=== PATIENT | female | born 1955 | race Caucasian/White ===

== ENCOUNTER → 2017-01-22 | Outpatient (CLI) | payer BC ==
[~2017-01-22] MED LIST: ASP81TEC PO; GLUCOSAMINE; HYDR-3583 PO; IBP600T1 PO; NIACIN
--- NOTE | 2017-01-26 13:58 | Diagnostic Imaging Report ---
EXAMINATION: Bilateral screening mammogram 2D views with tomosynthesis. The current study was also evaluated with a Computer Aided Detection (CAD) system. INDICATION: Screening. PERSONAL HISTORY: No current complaints stated on the questionnaire. COMPARISON: 09/23/2015. FINDINGS: The breasts are composed of heterogeneously dense parenchyma which may decrease mammographic sensitivity. No mass, architectural distortion, or suspicious cluster of calcifications is seen. Allowing for technique and positional differences, no suspicious change is seen. IMPRESSION: Dense breasts with no definite change. ACR BI-RADS Category 2: Benign findings. Result letter will be mailed to the patient. Note: At least 10% of breast cancer is not imaged by mammography. Dictated by: Dictated on workstation # [id number]
== END ==
LOC: RAD 12:58
PROVIDERS: ATTEND Family Medicine
DX: Z12.31 Encounter for screening mammogram for malignant neoplasm of breast (principal)
CPT/HCPCS: 77067

== ENCOUNTER → 2018-05-09 | Outpatient (CLI) | payer MEDICARE | LOC: RAD 15:09 | PROVIDERS: ATTEND Family Medicine | DX: Z12.31 Encounter for screening mammogram for malignant neoplasm of breast (principal) | CPT/HCPCS: 77067 ==

== ENCOUNTER 2018-05-23 15:35 | Outpatient (CLI) | payer MEDICARE ==
[~2018-05-23] VITALS: Ht 167.6 cm; Wt 61.7 kg
[~2018-05-23 15:35] MED LIST changes: +PANT40TA3 PO
== END 2018-05-23 15:43 ==
LOC: PREOP 15:35
PROVIDERS: ATTEND Internal Medicine
DX: Z01.818 Encounter for other preprocedural examination (principal)

== ENCOUNTER 2018-05-27 07:26 | Day surgery (SDC) | payer MEDICARE ==
--- NOTE | 2018-05-18 18:23 | HISTORY AND PHYSICAL ---
DATE OF SERVICE: COLONOSCOPY HISTORY AND PHYSICAL HISTORY OF PRESENT ILLNESS: The patient is a 63-year-old white female referred by Dr. Carley Vazquez for surveillance colonoscopy. She last underwent a colonoscopy six years ago at which time, one tubular adenoma was removed from the mid sigmoid colon. There was positive family history for colon cancer in her mother diagnosed in her 70s. She also had an uncle diagnosed in his 80s. She reports that she has been feeling well and reports no change in her health history compared to six years ago. She denies bowel habit change, abdominal pain, bright red blood per rectum, no melena and since being placed on proton pump inhibitor therapy, she has had no reflux symptoms or dysphagia. PAST MEDICAL HISTORY: Significant for mild hyperlipidemia and arthritis. She has no known history of cardiovascular or pulmonary disease. SOCIAL HISTORY: She is a retired teacher, 1 to 2 glasses of wine per night alcohol consumption and quit smoking over 20 years ago with previous 10 to 15 pack-year history. PAST SURGICAL HISTORY: She reports no past surgeries. FAMILY HISTORY: Mother was diagnosed with colon cancer in her 70s and an uncle in his 80s. She is not aware of any other significant family history for illness. PHYSICAL EXAMINATION: GENERAL: Reveals normal weight fit appearing white female, appears to be in no acute distress. VITAL SIGNS: Blood pressure 114/84, heart rate 66 and regular. HEENT: Unremarkable. Sclerae nonicteric. Oral cavity reveals a Mallampati class 2 pharyngeal configuration with no evidence for erythema or exudate. CHEST: Clear to auscultation. CARDIOVASCULAR: Reveals a regular rate and rhythm without murmur, S3 or S4. ABDOMEN: Soft, supple without mass, organomegaly or tenderness. EXTREMITIES: Reveal no cyanosis, clubbing or edema. ASSESSMENT AND PLAN: The patient is set up for surveillance colonoscopy due to past history of colon polyps as well as a family history for colon cancer as noted in the HPI. Prep instructions with the Suprep kit were given and questions were answered. I thank you for the referral of this pleasant lady. Job ID: [id number] DocumentID: [id number] Dictated Date: 05/12/2018 16:05:50 [employer] Operator Date: 05/12/2018 16:32:55 Dictated By: TERELL PURCELL MD
[~2018-05-27] VITALS: Ht 167.6 cm; Wt 61.7 kg
[2018-05-27] MEDS ORDERED: D5 LR IV SOLUTION 1,000 ML IV STA (07:39)
[2018-05-27] MEDS ORDERED: LIDOCAINE JELLY 2% 6 ML SYRINGE MM PRN (07:45)
[2018-05-27] MEDS ORDERED: D5 LR IV SOLUTION 1,000 ML IV ONE (07:45)
[2018-05-27] MEDS ORDERED: fentaNYL INJECTION 100 MCG/2 ML AMP IVP ONE (07:45)
[2018-05-27] MEDS ORDERED: MIDAZOLAM 2 MG/2 ML (VERSED) VIAL IVP ONE (07:45)
[2018-05-27 07:53] VITALS: BP 138/118
[2018-05-27] MEDS ORDERED: MIDAZOLAM 2 MG/2 ML (VERSED) VIAL ONE ×2 (08:03)
[2018-05-27] MEDS ORDERED: LIDOCAINE JELLY 2% 6 ML SYRINGE ONE (08:03)
[2018-05-27] MEDS ORDERED: fentaNYL INJECTION 100 MCG/2 ML AMP ONE ×2 (08:03)
[2018-05-27 09:15] VITALS: BP 149/83
--- NOTE | 2018-05-27 09:17 | Pre-Op Note & Conscious Sedat ---
Pre-Operative Progress Note H&P Reviewed The H&P was reviewed, patient examined and no changes noted. Date H&P Reviewed: May 27, 2018 Time H&P Reviewed: 07:45 Conscious Sedation Pre-Proced ASA Score 2 For ASA 3 and 4: Consider anesthesia and medical clearance. Also, for patients with a history of failed moderate sedation consider anesthesia. Airway Lungs Heart ASA score ASA 1: a normal healthy patient ASA 2: a patient with a mild systemic disease (mid diabetes, controlled hypertension, obesity ASA 3: a patient with a severe systemic disease that limits activity (angina , COPD, prior Myocardial infarction) ASA 4: a patient with an incapacitating disease that is a constant threat to life (CHF, renal failure) ASA 5: a moribund patient not expected to survive 24 hrs. (ruptured aneurysm) ASA 6: a declared brain- patient whose organs are being harvested. For emergent operations, add the letter E after the classification Mallampati Classification Grade 2 Sedation Plan Analgesia, Amnesia, Plan communicated to team members, Discussed options with patient/fam, Discussed risks with patient/fam The patient is an appropriate candidate to undergo the planned procedure, sedation, and anesthesia. The patient immediately re-assessed prior to indication. TERELL PURCELL MD May 27, 2018 09:17
[2018-05-27 09:45] VITALS: BP 158/86
[2018-05-27 10:05] VITALS: BP 158/86
--- NOTE | 2018-05-28 04:33 | OPERATIVE REPORT ---
DATE OF SERVICE: COLONOSCOPY SUMMARY INDICATION FOR THE PROCEDURE: Surveillance colonoscopy due to past history of colon polyps and a family history for colon cancer, index case being her mother in her 80s. The patient was placed in the left lateral decubitus position. Prior to undergoing colonoscopy, digital rectal evaluation was performed. Anal sphincter tone was normal and perianal reflexes intact. The anal canal is unremarkable. Digital evaluation was compatible with a small anterior rectocele. No other abnormalities to visual inspection of anal canal or distal rectal vault. The colonoscope was then inserted into the rectum and under direct visualization advanced to the cecum. The cecum was identified by identification of the ileocecal valve and cecal strap. Photographic documentation was obtained. A careful inspection was made as the colonoscope was withdrawn. The colonic prep was good. FINDINGS: There is no evidence for internal or external hemorrhoids. The rectum, sigmoid colon, descending colon, splenic flexure, and transverse colon were unremarkable. Several small to medium size ascending colonic diverticulum were noted without evidence for diverticulitis. No other ascending colonic abnormalities were appreciated. The cecum was unremarkable. ASSESSMENT: Several moderate size ascending colonic diverticulum were noted without evidence for diverticulitis. No left sided diverticulum were noted. No evidence for neoplasia was noted and no other abnormalities were appreciated. We would advocate consideration for repeat screening colonoscopy in 5 years considering family history. I thank you for the referral of this pleasant lady. Job ID: [id number] DocumentID: [id number] Dictated Date: 05/27/2018 17:08:31 Youth Probation Officer Date: 05/28/2018 04:32:03 Dictated By: TERELL PURCELL MD MTDD
== END 2018-05-27 10:05 | disposition home or self-care (01) ==
LOC: ENDO 07:26
PROVIDERS: ATTEND Internal Medicine
DX: Z12.11 Encounter for screening for malignant neoplasm of colon (principal); K57.30 Diverticulosis of large intestine without perforation or abscess without bleeding; Z86.010 Personal history of colon polyps; Z80.0 Family history of malignant neoplasm of digestive organs; E78.5 Hyperlipidemia, unspecified; Z87.891 Personal history of nicotine dependence

== ENCOUNTER → 2019-05-29 | Outpatient (CLI) | payer MEDICARE ==
--- NOTE | 2019-05-29 17:56 | Diagnostic Imaging Report ---
EXAMINATION: Digital mammogram bilateral screening. The current study was also evaluated with a Computer Aided Detection (CAD) system. 3-D tomosynthesis was also performed and reviewed. INDICATION: Screening. This study was compared to the prior exams of 05/09/2018, 01/22/2017, and 09/23/2015. At this time, there are no current complaints. FINDINGS: The fibroglandular tissue in both breasts is heterogeneously dense. This does limit the sensitivity of this exam. Overall, there does not appear to have been any significant change when compared to the prior study. No primary or secondary sign of malignancy is noted. 3D tomographic images fail to show any sign of malignancy. IMPRESSION: There is no radiographic evidence for malignancy. ACR BI-RADS Category 1: Negative. Result letter will be mailed to the patient. Note: At least 10% of breast cancer is not imaged by mammography. Dictated by: Dictated on workstation # [id number]
== END ==
LOC: RAD 14:32
PROVIDERS: ATTEND Family Medicine
DX: Z12.31 Encounter for screening mammogram for malignant neoplasm of breast (principal)
CPT/HCPCS: 77067

== ENCOUNTER → 2020-08-06 | Outpatient (CLI) | payer MEDICARE ==
[~2020-08-06] MED LIST changes: -PANT40TA3 PO; +PANT40TA52 PO
--- NOTE | 2020-08-06 16:13 | Diagnostic Imaging Report ---
INDICATION: Routine screening. COMPARISON: 05/29/2019 and 05/09/2018. TECHNIQUE: 2D and 3D bilateral screening mammography was performed with CAD. FINDINGS: Both breasts are heterogeneously dense, limiting the sensitivity of mammography. The parenchymal pattern is stable. No mass or malignant appearing microcalcifications are seen. The axillae are unremarkable. IMPRESSION: No mammographic features suspicious for malignancy are identified. ACR BI-RADS Category 1: Negative. Result letter will be mailed to the patient. Note: At least 10% of breast cancer is not imaged by mammography. Dictated by: Dictated on workstation # [id number]
--- NOTE | 2020-08-06 16:24 | Diagnostic Imaging Report ---
INDICATION: Postmenopausal screening COMPARISON: Baseline FINDINGS: AP Spine L1-L4: [BMD (g/cm2): 1.282] [T-Score: 0.7] [Z-Score: 2.5] [BMD Previous: na] [BMD % Change: na] LT Hip Neck: [BMD (g/cm2): 0.891] [T-Score: -1.1] [Z-Score: 0.6] LT Hip Total: [BMD (g/cm2):0.788] [T-Score:-1.7] [Z-Score: -0.3] [BMD Previous: na] [BMD % Change: na] RT Hip Neck: [BMD (g/cm2):0.924] [T-Score:-0.8] [Z-Score:0.9] RT Hip Total: [BMD (g/cm2):0.764] [T-score:-1.9] [Z-Score:-0.5] [BMD Previous:na] [BMD % Change:na] *Indicates significant change from prior examination based on 95% confidence level. World Health Organization criteria for BMD interpretation classify patients as Normal (T-score at or above -1.0), Osteopenic (T-score between -1.0 and -2.5) or Osteoporotic (T-score at or below -2.5). LIMITATIONS AND MODIFICATION: None. FRACTURE RISK (FRAX SCORE): The ten year probability of (%): Major Osteoporotic Fracture: [7.7] Hip Fracture: [0.7] IMPRESSION: 1. Osteopenia (Low bone mass). 2. Baseline examination. 3. See below National Osteoporosis Foundation guidelines on when to potentially initiate pharmacologic therapy. Based on the National Osteoporosis Foundation Guidelines, pharmacologic treatment should be initiated in any of the following, unless clinical conditions suggest otherwise: * Any patient with prior fragility fracture of the hip or vertebrae. A spine fracture indicates 5X risk for subsequent spine fracture and 2X risk for subsequent hip fracture. * Osteoporosis (T-score <-2.5). * Postmenopausal women and men age 50 and older with low bone mass/osteopenia (T-score between -1.0 and -2.5) by DXA and 10-year major osteoporotic fracture greater than 20% or a 10-year probability of hip fracture greater than 3%. These fracture risks are supplied above in the FRAX score, if applicable. * Clinician judgement and/or patient preferences may indicate treatment for people with 10-year fracture probabilities above or below these levels. Dictated by: Dictated on workstation # [id number]
== END ==
LOC: RAD 13:30
PROVIDERS: ATTEND Family Medicine
DX: Z12.31 Encounter for screening mammogram for malignant neoplasm of breast (principal); M85.80 Other specified disorders of bone density and structure, unspecified site; Z78.0 Asymptomatic menopausal state
CPT/HCPCS: 77063; 77067; 77080

== ENCOUNTER → 2021-08-11 | Outpatient (CLI) | payer MEDICARE ==
--- NOTE | 2021-08-11 16:20 | Diagnostic Imaging Report ---
INDICATION: Routine screening. COMPARISON: 08/06/2020 and 05/29/2019. TECHNIQUE: 2D and 3D bilateral screening mammography was performed with CAD. FINDINGS: Both breasts are heterogeneously dense, limiting the sensitivity of mammography. No dominant mass or malignant-appearing microcalcifications are seen. The axillae are unremarkable. IMPRESSION: No mammographic features suspicious for malignancy are identified. ACR BI-RADS Category 1: Negative. Result letter will be mailed to the patient. Note: At least 10% of breast cancer is not imaged by mammography. Dictated by: Dictated on workstation # [id number]
== END ==
LOC: RAD 15:00
PROVIDERS: ATTEND Family Medicine
DX: Z12.31 Encounter for screening mammogram for malignant neoplasm of breast (principal)
CPT/HCPCS: 77063; 77067

== ENCOUNTER → 2022-09-23 | Outpatient (CLI) | payer MEDICARE ==
--- NOTE | 2022-09-23 11:11 | Diagnostic Imaging Report ---
INDICATION: Routine screening. COMPARISON: 08/11/2021 and -08/06/2020. TECHNIQUE: 2D and 3D bilateral screening mammography was performed with CAD. FINDINGS: Both breasts are heterogeneously dense, limiting the sensitivity of mammography. A benign nodule in the outer right breast is stable. No discrete mass or malignant-appearing microcalcifications are seen. There are benign calcifications. The axillae are unremarkable. IMPRESSION: No mammographic features suspicious for malignancy are identified. ACR BI-RADS Category 2: Benign findings. Result letter will be mailed to the patient. Note: At least 10% of breast cancer is not imaged by mammography. Dictated by: Dictated on workstation # [id number]
== END ==
LOC: RAD 07:48
PROVIDERS: ATTEND Family Medicine
DX: Z12.31 Encounter for screening mammogram for malignant neoplasm of breast (principal)
CPT/HCPCS: 77063; 77067

== ENCOUNTER → 2022-10-06 | Outpatient (CLI) | payer MEDICARE ==
--- NOTE | 2022-10-06 16:49 | Diagnostic Imaging Report ---
INDICATION: Postmenopausal screening for osteoporosis COMPARISON: 08/06/2020 FINDINGS: AP Spine L1-L4: [BMD (g/cm2): 1.207] [T-Score: 0.1] [Z-Score: 2.0] [BMD Previous: 1.282] [BMD % Change: -5.9*] LT Hip Neck: [BMD (g/cm2): 0.907] [T-Score: -0.9] [Z-Score: 0.9] LT Hip Total: [BMD (g/cm2):0.760] [T-Score:-2.0] [Z-Score: -0.3] [BMD Previous: 0.788] [BMD % Change: -3.6] RT Hip Neck: [BMD (g/cm2):0.925] [T-Score:-0.8] [Z-Score:1.0] RT Hip Total: [BMD (g/cm2):0.747] [T-score:-2.1] [Z-Score:-0.4] [BMD Previous:0.764] [BMD % Change:-2.2] *Indicates significant change from prior examination based on 95% confidence level. World Health Organization criteria for BMD interpretation classify patients as Normal (T-score at or above -1.0), Osteopenic (T-score between -1.0 and -2.5) or Osteoporotic (T-score at or below -2.5). LIMITATIONS AND MODIFICATION: None. FRACTURE RISK (FRAX SCORE): The ten year probability of (%): Major Osteoporotic Fracture: [7.7] Hip Fracture: [0.8] IMPRESSION: 1. Osteopenia (Low bone mass). 2. There has been a statistically significant increase in lumbar spinal BMD since prior exam, detailed above. 3. See below National Osteoporosis Foundation guidelines on when to potentially initiate pharmacologic therapy. Based on the National Osteoporosis Foundation Guidelines, pharmacologic treatment should be initiated in any of the following, unless clinical conditions suggest otherwise: * Any patient with prior fragility fracture of the hip or vertebrae. A spine fracture indicates 5X risk for subsequent spine fracture and 2X risk for subsequent hip fracture. * Osteoporosis (T-score <-2.5). * Postmenopausal women and men age 50 and older with low bone mass/osteopenia (T-score between -1.0 and -2.5) by DXA and 10-year major osteoporotic fracture greater than 20% or a 10-year probability of hip fracture greater than 3%. These fracture risks are supplied above in the FRAX score, if applicable. * Clinician judgement and/or patient preferences may indicate treatment for people with 10-year fracture probabilities above or below these levels. Dictated by: Dictated on workstation # [id number]
== END ==
LOC: RAD 09:37
PROVIDERS: ATTEND Family Medicine
DX: Z13.820 Encounter for screening for osteoporosis (principal); M85.80 Other specified disorders of bone density and structure, unspecified site; Z78.0 Asymptomatic menopausal state
CPT/HCPCS: 77080